=== PATIENT | female | born 1955 | race Caucasian/White ===

== ENCOUNTER 2023-03-18 21:57 | Emergency (ER) | payer MEDICARE, OTHER ==
[2023-03-18] MEDS ORDERED: Ondansetron PF 4 MG/2 ML Vial ONE (22:23)
[2023-03-18 22:39] LABS: #Basophils 0.1 thou/uL (0.0-0.2); #Eosinphils 0.1 thou/uL (0.0-0.7); #Monocytes 0.5 thou/uL (0.11-0.59); #Neutrophils 3.8 thou/uL (1.40-6.50); %Basophils 0.9 % (0.0-1.0); %Lymphocytes 34.9 % (21.0-51.0); %Monocytes 7.3 % (0.0-10.0); %Neutrophils 55.8 % (42.0-75.0); Hemoglobin 13.8 g/dL (12.0-16.0); Mean Corpuscular HGB CONC 34.9 g/dL (32.0-36.0); Mean Corpuscular Hemoglobin 31.7 pg (27.0-31.0); Mean Corpuscular Volume 90.6 fl (78.0-98.0); Mean Platelet Volume 8.3 fL (7.4-10.4); Platelet Count 349 10x3/uL (130-400); RBC Distribution Width 12.3 % (11.5-14.5); Red Blood Cell (RBC) Count 4.36 mill/uL (4.20-5.40); White Blood Cell (WBC) Count 6.8 10x3/uL (4.8-10.8)
[2023-03-18 23:01] LABS: Acetaminophen Less than 10 mcg/mL (10.0-30.0); Alcohol 185.9 mg/dL (Less than 10); Salicylate Less than 8.0 mg/dL (15.0-30.0)
[2023-03-18 23:02] LABS: ALT (SGPT) 47 U/L (8-55); AST (SGOT) 26 U/L (5-34); Albumin 4.2 g/dL (3.4-4.8); Alcohol 189.7 mg/dL (Less than 10); Alkaline Phosphatase 82 U/L (40-110); Anion Gap 14 mmol/L (10-20); BUN (Urea Nitrogen) 15 mg/dL (9.8-20.1); Bilirubin, Total 0.3 mg/dL (0.2-1.2); Calc. Creatinine Clearance 0 mL/min (70-130); Calcium 9.6 mg/dL (7.8-10.44); Carbon Dioxide 25 mmol/L (23-31); Chloride 108 mmol/L (98-107); Estimated GFR 81; Globulin 3.1 g/dL (2.4-3.5); Glucose 114 mg/dL (80-115); Potassium 3.8 mmol/L (3.5-5.1); Protein, Total 7.3 g/dL (5.8-8.1); Sodium 143 mmol/L (136-145)
[2023-03-18 23:07] LABS: Amphetamine Not Detected (NotDetected); Barbiturates Screen Not Detected (NotDetected); Benzodiazepine Screen Not Detected (NotDetected); Cocaine Metabolite Screen Not Detected (NotDetected); Methadone Not Detected (NotDetected); Methamphetamine Not Detected (NotDetected); Opiate Screen Not Detected (NotDetected); Oxycodone Screen Not Detected (NotDetected); Phencyclidine (PCP) Not Detected (NotDetected); THC/Cannabinoid Screen Not Detected (NotDetected); Tricyclic Screen Not Detected (NotDetected)
[2023-03-18] MEDS ORDERED: Activated Charcoal/Sorbitol 25 GM/120 ML TUBE ONE (23:09)
[2023-03-18 23:17] LABS: Bacteria/HPF 4+ HPF (None Seen); Bilirubin Negative (Negative); Blood, Urine Trace (Negative); CAUTI Indications for Culture Alt mental st,lethar; Clarity Turbid (Clear); Glucose, Urine (Dipstick) Normal (Negative); Ketone, Urine Negative (Negative); Leukocyte 500 Leu/uL (Negative); Nitrite Negative (Negative); Protein, Urine (Dipstick) 10 mg/dL (Neg-Trace); Specific Gravity, Urine 1.009 (1.002-1.036); Urobilinogen Normal mg/dL (Less than 2); WBC/HPF Greater than 50 HPF (0-3)
[2023-03-18 23:18] LABS: Urine Culture Reflex Yes Yes
[2023-03-19] MEDS ORDERED: cefTRIAXone (ROCEPHIN) 1 GM VIAL ONE (05:56)
[2023-03-19] MEDS ORDERED: Ondansetron PF 4 MG/2 ML Vial ONE ×2 (07:02→14:14)
[2023-03-19] MEDS ORDERED: Ondansetron ODT 4 MG TAB ONE (14:16)
[2023-03-19] MEDS ORDERED: hydrOXYzine 25 MG TAB ONE (18:44)
[2023-03-19] MEDS ORDERED: Nicotine 14 MG PATCH ONE (18:44)
[2023-03-19] MEDS ORDERED: hydrOXYzine Pamoate 25 mg Capsule ONE (18:45)
[2023-03-19] MEDS ORDERED: traZODone HCl 50 MG TAB ONE (22:04)
[2023-03-19] MEDS ORDERED: rOPINIRole HCl 2 MG TAB PO SCH (23:30)
== END 2023-03-20 12:20 ==
LOC: ERS 21:57
DX: R45.851 Suicidal ideations (principal); F32.A Depression, unspecified; I10 Essential (primary) hypertension; F17.210 Nicotine dependence, cigarettes, uncomplicated; Z79.899 Other long term (current) drug therapy
CPT/HCPCS: 36415; 80053; 80306; 80307; 81001; 84443; 85025; 87086; 93005; 96365; 96375; 96376; J0696; J2405; Q0162; Q0177